=== PATIENT | female | born 1990 | race Caucasian/White ===

== ENCOUNTER 2016-12-13 14:40 | Emergency (ER) | payer MEDICAID ==
[~2016-12-13] VITALS: Ht 154.9 cm; Wt 63.9 kg
[2016-12-13 15:35] LABS: BLOOD UREA NITROGEN 14 mg/dL (7-18)
[2016-12-13 16:51] VITALS: BP 106/61
== END 2016-12-13 16:59 | disposition home or self-care (01) ==
LOC: ED 16:51
DX: O26.891 Other specified pregnancy related conditions, first trimester (principal); R10.2 Pelvic and perineal pain; Z3A.01 Less than 8 weeks gestation of pregnancy
CPT/HCPCS: 36415; 76801; 80048; 81003; 82040; 84702; 85025; 99285

== ENCOUNTER 2018-06-24 13:01 | Emergency (ER) | payer MEDICAID ==
[~2018-06-24] VITALS: Ht 154.9 cm; Wt 54.4 kg
[2018-06-24 13:18] VITALS: BP 135/88
[2018-06-24] MEDS ORDERED: ACETAMINOPHEN 500 MG TABLET PO ONE (14:00)
[2018-06-24] MEDS ORDERED: IBUPROFEN 200 MG TABLET PO ONE (14:00)
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
--- NOTE | 2018-06-24 14:29 | NUR ---
PT STATES TYLENOL PRIOR TO ARRIVAL.
[2018-06-24 14:42] LABS: BASOPHILS # (AUTO) 0.04 x10^3/uL (0-0.1); BASOPHILS % (AUTO) 1 % (0-1); EOSINOPHILS # (AUTO) 0.13 x10^3/uL (0-0.4); EOSINOPHILS % (AUTO) 2 % (1-7); LYMPHOCYTES # (AUTO) 1.96 x10^3/uL (1-3.4); LYMPHOCYTES % (AUTO) 35 % (22-44); MD NO; MEAN CORPUSCULAR HEMOGLOBIN 32.8 pg (27.0-34.8); MEAN CORPUSCULAR HGB CONC 34.4 g/dL (32.4-35.8); MEAN CORPUSCULAR VOLUME 95.5 fL (80-100); MEAN PLATELET VOLUME 7.4 fL (7.4-10.4); MONOCYTES # (AUTO) 0.42 x10^3/uL (0.2-0.8); MONOCYTES % (AUTO) 8 % (2-9); NEUTROPHILS % (AUTO) 55 % (42-75); PLATELET COUNT 330 x10^3/uL (130-400); RED BLOOD COUNT 4.09 x10^6/uL (3.82-5.3); RED CELL DISTRIBUTION WIDTH 13.1 % (9.6-15.2)
[2018-06-24] MEDS ORDERED: IBUPROFEN 600 MG TABLET ONE (14:42)
--- NOTE | 2018-06-24 14:44 | NUR ---
PT MEDICATED PER JUL. 5 RIGHTS VERIFIED PRIOR. 3 P'S ADDRESSED.
[2018-06-24 14:50] LABS: ALBUMIN 4.2 g/dL (3.4-5.0); ANION GAP 8 mmol/L (5-15); CALCIUM 8.9 mg/dL (8.5-10.1); CHLORIDE 109 mmol/L (98-107)
--- NOTE | 2018-06-24 15:45 | NUR ---
PT GIVEN DC PAPERWORK. PT VERBALIZED UNDERSTANDING INFORMATION GIVEN TO PT BY GABE.
== END 2018-06-24 16:27 | disposition home or self-care (01) ==
LOC: ED 15:55
DX: G89.11 Acute pain due to trauma (principal); H92.02 Otalgia, left ear; R68.84 Jaw pain; B34.9 Viral infection, unspecified; Y04.8XXA Assault by other bodily force, initial encounter; Y93.89 Activity, other specified; Y92.009 Unspecified place in unspecified non-institutional (private) residence as the place of occurrence of the external cause; Y99.8 Other external cause status
CPT/HCPCS: 36415; 70450; 70486; 80048; 82040; 84703; 85025; 99284